=== PATIENT | male | born 2000 | race Caucasian/White ===

== ENCOUNTER 2024-10-01 15:43 | Emergency (ER) | payer SELFPAY ==
[~2024-10-01] VITALS: Ht 177.8 cm; Wt 70.3 kg
[2024-10-01 15:52] VITALS: BP 141/68; RESP 16; TEMP 97.9; O2SAT 100
[2024-10-01 15:55] VITALS: PULSE 88; O2SAT 100
[2024-10-01 20:17] LABS: CARBON DIOXIDE 28 mEq/L (21-32); CHLORIDE 109 mEq/L (98-107); SODIUM 142 mEq/L (136-145)
[2024-10-01 20:18] LABS: CALCIUM 9.9 mg/dL (8.7-10.4)
[2024-10-01 20:23] LABS: CREATININE 0.9 mg/dL (0.6-1.3); GLUCOSE 90 mg/dL (70-105); UREA NITROGEN BLOOD 16 mg/dL (9-23)
[2024-10-01 20:38] LABS: PROTHROMBIN TIME 11.2 sec (9.6-11.0)
[2024-10-01] MEDS ORDERED: TC1C15 TP (20:39)
[2024-10-01] MEDS ORDERED: CLAR10 MT (20:40)
[2024-10-01 20:48] LABS: BASOPHILS % 0.9 % (0.0-2.0); DIFFERENTIAL COMMENT 0; HEMATOCRIT. 43.5 % (42.0-52.0); HEMOGLOBIN. 14.4 g/dL (14.0-18.0); LYMPHOCYTES % 27.2 % (20.0-50.0); MEAN CORPUSCULAR HEMOGLOBIN 30.5 pg (28.0-32.0); MEAN CORPUSCULAR HGB CONC 33.1 g/dL (31.0-37.0); MEAN CORPUSCULAR VOLUME 92.1 fL (80.0-94.0); MEAN PLATELET VOLUME 10.1 fl (7.4-10.4); MONOCYTES % 7.3 % (2.0-8.0); NEUTROPHILS % 62.6 % (40.0-76.0); PLATELET 347 x1000/uL (130-400); RED BLOOD CELL COUNT 4.72 mill/uL (4.7-6.1); RED CELL DISTRIBUTION WIDTH 13.8 % (11.6-14.6); WHITE BLOOD COUNT 13.5 x1000/uL (4.5-11.0)
[2024-10-01 21:41] LABS: CLARITY URINE CLEAR (CLEAR); COLOR URINE YELLOW (YELLOW); GLUCOSE URINE NEGATIVE (NEGATIVE); KETONES URINE NEGATIVE (NEGATIVE); LEUKOCYTE ESTERASE URINE NEGATIVE (NEGATIVE); NITRITE URINE NEGATIVE (NEGATIVE); OCCULT BLOOD URINE NEGATIVE (NEGATIVE); PROTEIN URINE NEGATIVE (NEGATIVE); SPECIFIC GRAVITY URINE 1.029 (1.005-1.030)
== END 2024-10-01 21:54 | disposition home or self-care (01) ==
LOC: ER 15:43
DX: R21 Rash and other nonspecific skin eruption (principal); K50.90 Crohn's disease, unspecified, without complications
CPT/HCPCS: 36415; 80048; 81003; 85025; 86592; 87491; 87591; 99283